=== PATIENT | male | born 1980 | race Caucasian/White ===

== ENCOUNTER 2019-06-17 00:23 | Emergency (ER) | payer SELFPAY ==
[2019-06-17] VITALS (45 sets, daily range): BP systolic 114–187; BP diastolic 78–134; PULSE 56–105; RESP 11–32; TEMP 37–37.4; O2SAT 89–100; BMI 27.0
--- NOTE | 2019-06-17 00:52 | XRR_ITS ---
PROCEDURE INFORMATION: Exam: XR Right Humerus Exam date and time: 06/17/2019 1:10 AM Age: 39 years old Clinical indication: Injury or trauma; Fall; Initial encounter; Dislocation; Severity not specified; Elbow; Right TECHNIQUE: Imaging protocol: XR Right humerus Views: 2 or more views. COMPARISON: No relevant prior studies available. FINDINGS: Bones/joints: Elbow findings detailed in a separate report. No humeral fracture or shoulder dislocation. Soft tissues: Unremarkable. XR/[place] [id number] IMPRESSION: No humeral fracture.
--- NOTE | 2019-06-17 00:52 | XRR_ITS ---
PROCEDURE INFORMATION: Exam: XR Right Elbow Exam date and time: 06/17/2019 1:10 AM Age: 39 years old Clinical indication: Injury or trauma; Fall; Initial encounter; Dislocation; Severity not specified; Elbow; Right TECHNIQUE: Imaging protocol: XR Right elbow. Views: 3 or more views. COMPARISON: No relevant prior studies available. FINDINGS: Bones/joints: Posterior and medial dislocation of the radius and ulna in relationship to the distal humerus. Approximately 1 cm long narrow focus of bone in the olecranon notch. Soft tissues: No large soft tissue hematoma. XR/XR elbow RT min 3V* [id number] IMPRESSION: Elbow dislocation. Probable chip fracture fragment in the olecranon notch, origin unclear.
--- NOTE | 2019-06-17 00:53 | ED_ITS ---
Documented by User: ARIN Pires 06/17/19 00:56 HPI - Extremity Problem General: Chief complaint: Extremity Injury, Upper Stated complaint: r arm injury Time Seen by Provider: 06/17/19 00:43 History of Present Illness: HPI Narrative: Patient fell off a porch night after drinking 3 cups of a serums and soda mixed has right elbow humerus pain and deformity. MD Complaint: extremity pain Onset (ago): minute(s) Pain Consistency: constant Location: right, upper extremity and elbow Severity scale (1-10): 8 Radiation: none Relieving factors: immobilization Exacerbating factors: range of motion Associated symptoms: Deny chest pain, fever(s) or rash Review of Systems Narrative: Patient has been using alcohol tonight but does not appear intoxicated presently complains about right elbow arm pain from a fall earlier tonight Const: Denies: fever, chills or body aches Eyes: Denies: change in vision or blurry vision ENMT: Denies: throat pain or nasal congestion Card: Denies: chest pain or shortness of breath on exertion Resp: Denies: shortness of breath, productive cough or non-productive cough GI: Denies: abdominal pain, nausea or vomiting : Denies: difficulty urinating Musc: Reports: extremity pain and limited range of motion Skin/Breast: Denies: rash Neuro: Denies: headache Psych: Denies: anxiety or depression Hi/Lymph: Denies: easy bruising PFSH ED PFSH: Social History Smoking and tobacco status: never smoked Physical Exam Const: COMMON NORMALS: no apparent distress, average body habitus and oriented x3 HENMT: COMMON NORMALS: normocephalic HEAD & SCALP: normal to inspection and normocephalic FACE & SINUS: normal facial exam Eye: COMMON NORMALS: conjunctivae normal GENERAL EYE: normal appearance of both eyes CONJUNCTIVA: Yes conjunctivae normal Neck/C-Spine: COMMON NORMALS: no JVD Chest: COMMONS NORMALS: inspection of chest normal Resp: COMMON NORMALS: normal respiratory effort and clear to auscultation bilaterally AUSCULTATION: clear to auscultation bilaterally Cardio: COMMON NORMALS: no JVD, regular rate and regular rhythm RATE: regular rate RHYTHM: regular rhythm GI: COMMON NORMALS: normal to inspection, nondistended, normoactive bowel sounds Extremity: COMMON NORMALS: normal to inspection and full ROM RIGHT UPPER EXTREMITY: Yes upper arm (Deformed at the distal humerus) and Yes elbow joint (Deformity) Right elbow: Yes neurovascular exam Neuro: COMMON NORMALS: oriented x3 Course Vital Signs: Vital signs: Vital Signs Temperature 99.3 F 06/17/19 03:40 Pulse Rate 64 06/17/19 04:45 Respiratory Rate 16 06/17/19 04:45 Blood Pressure 115/78 06/17/19 04:45 Pulse Oximetry 97 06/17/19 04:45 Discharge Plan Discharge Patient Disposition: Home, Self-Care Clinical Impression: Dislocation, elbow, posterior Qualifiers: Encounter type: initial encounter Laterality: right Qualified Code(s): S53.124A - Posterior dislocation of right ulnohumeral joint, initial encounter Condition: Stable Prescriptions: New Percocet 7.5-325 mg tablet 1 tab PO Q6H PRN (Reason: pain) Qty: 14 RF: 0 No Action No Known Home Medications RF: 0 Discharge Orders: Discharge Order (Routine); Ordered 06/17/19 Ordered By: Marshall Call Referrals: Tri Howard MD [Physician] - 4-7 days Discharge Diet: Usual diet Discharge Activity: Limit activity as instructed Patient Instructions: Elbow Dislocation (ED) Activity Restrictions/Additional Instructions: Stay in splint until seen by orthopedics. Give them a call Tuesday morning for an appointment this coming week. Return for loss of sensation to your fingers, worsening pain, other concerning symptoms. Discharge Date/Time: 06/17/19 04:55 Coding Level of Care Code ED Inorganic Chemistry Professor for Chg Fwd Exam Comprehensive Documented by User: Marshall Call DO 06/17/19 05:27 HPI - Extremity Problem General: Chief complaint: Extremity Injury, Upper Stated complaint: r arm injury Time Seen by Provider: 06/17/19 00:43 PFSH ED PFSH: Social History Smoking and tobacco status: never smoked Course ED course: 39-year-old male who fell, dislocating his elbow. He was originally seen by ARIN Wilson. I agree with his history, exam, and treatment it essentially took 3 attempts to get his elbow reduced. After the second attempt, he seemed reduced in the coronal plane, but not in the sagittal. On the third attempt, he freely reduced to anatomical. He is placed in a long-arm splint and a sling and asked to follow-up with orthopedics. Vital Signs: Vital signs: Vital Signs Temperature 99.3 F 06/17/19 03:40 Pulse Rate 64 06/17/19 04:45 Respiratory Rate 16 06/17/19 04:45 Blood Pressure 115/78 06/17/19 04:45 Pulse Oximetry 97 06/17/19 04:45 Discharge Plan Discharge Patient Disposition: Home, Self-Care Clinical Impression: Dislocation, elbow, posterior Qualifiers: Encounter type: initial encounter Laterality: right Qualified Code(s): S53.124A - Posterior dislocation of right ulnohumeral joint, initial encounter Condition: Stable Prescriptions: New Percocet 7.5-325 mg tablet 1 tab PO Q6H PRN (Reason: pain) Qty: 14 RF: 0 No Action No Known Home Medications RF: 0 Discharge Orders: Discharge Order (Routine); Ordered 06/17/19 Ordered By: Marshall Call Referrals: Tri Howard MD [Physician] - 4-7 days Discharge Diet: Usual diet Discharge Activity: Limit activity as instructed Patient Instructions: Elbow Dislocation (ED) Activity Restrictions/Additional Instructions: Stay in splint until seen by orthopedics. Give them a call Tuesday for an appointment this coming week. Return for loss of sensation to your fingers, worsening pain, other concerning symptoms. Discharge Date/Time: 06/17/19 04:55 Coding Level of Care Code ED Inorganic Chemistry Professor for Katty Tillman Exam Comprehensive
[2019-06-17] MEDS: morphine 4 mg/mL SDV 1 mL IVP (00:59)
[2019-06-17] MEDS: ondansetron 2 mg/ML SDV 2 mL 4 MG IVP ×2 (00:59→01:41)
--- NOTE | 2019-06-17 01:08 | PC.NURSE ---
Introduced self to patient and initiated vital signs. Patient presents A&O x 4. NAD, ABCs intact and agreeable to treatment. Respirations are even and unlabored. Pt states medications taken before coming to ER are n/a. Pt states that the chief complaint for the ER visit today is due to right elbow / arm pain from falling off of front porch. Pt denies any vision disturbances or lightheadedness. Bed left in lowest position in semi-fowlers with side rails up. Reassured patient of needs and will continue to monitor.
--- NOTE | 2019-06-17 01:14 | XRR_ITS ---
PROCEDURE INFORMATION: Exam: XR Right Elbow Exam date and time: 06/17/2019 3:47 AM Age: 39 years old Clinical indication: Injury or trauma; Fall; Initial encounter; Dislocation; Severity not specified; Elbow; Right; Additional info: Post reduc TECHNIQUE: Imaging protocol: XR Right elbow. Views: 1 or 2 views. COMPARISON: CR XR elbow RT min 3V* [id number] 06/17/2019 12:52 AM FINDINGS: Bones/joints: Interval reduction of the elbow dislocation. Widening of the radiohumeral joint. Small bony density still evident in the area of the olecranon notch suggesting a chip fracture fragment. Soft tissues: No large hematoma. XR/XR elbow RT 2V [id number] IMPRESSION: Reduction of the elbow dislocation. Small chip fracture fragment in the area of the olecranon notch still likely.
[2019-06-17] MEDS: midazolam 1 mg/mL INJ 2 mL 2 MG IV (01:38)
--- NOTE | 2019-06-17 02:49 | PC.NURSE ---
Conscious Sedation medications: Zofran 4mg - 0200 Versed 2mg - 0202 Etomidate 20mg - 0205 (over 30 seconds) Etomidate 10mg - 0215
[2019-06-17] MEDS: propofol 10 mg/mL SDV 20 mL IVP (03:31)
--- NOTE | 2019-06-17 04:12 | PC.NURSE ---
Conscious Sedation - 2 Propofol - 0340 - 40ml 0343 - 40ml 0346 - 20ml 0350 - 20ml 0352 - 10ml
--- NOTE | 2019-06-18 14:10 | DCPLANNER ---
manager supply had message to schedule a follow up appointment for patient with ortho. manager supply called the ortho clinic, spoke with Jada, gave clinic patients information. manager supply was told that patients information would be printed and reviewed. Clinic will call child support case officer with appointment information.
--- NOTE | 2019-06-19 12:39 | DCPLANNER ---
Patient has a follow up appointment scheduled for Wednesday, June 19, 2019 at 2:00 with James. Clinic will call patient with appointment information.
--- NOTE | 2019-06-28 09:52 | DCPLANNER ---
Patient attended appointment scheduled for 06.19.19 with ortho.
== END 2019-06-17 04:55 | disposition home or self-care (01) ==
PROVIDERS: Emergency Provider Emergency Medicine
DX: S53.124A Posterior dislocation of right ulnohumeral joint, initial encounter (principal); W17.89XA Other fall from one level to another, initial encounter; Y92.89 Other specified places as the place of occurrence of the external cause
CPT/HCPCS: 24600; 73060; 73070; 73080; 96361; 96374; 96375; 99284; J2250; J2270; J2405; J2704; J3490

== ENCOUNTER → 2019-06-19 14:30 | Outpatient (BNVA) | payer SELFPAY | PROVIDERS: Referring Provider Emergency Medicine; Visit Provider Orthopaedic Surgery | DX: S53.124A Posterior dislocation of right ulnohumeral joint, initial encounter (principal); X58.XXXA Exposure to other specified factors, initial encounter | CPT/HCPCS: 73080 ==

== ENCOUNTER 2019-07-03 09:27 | Outpatient (CLI) | payer SELFPAY ==
--- NOTE | 2019-07-03 09:41 | XR_ITS ---
WS: [id number] XR elbow RT 2V [id number] REASON FOR EXAM: dislocation elbow FINDINGS: Normal anatomical positioning of the right elbow is noted. No abnormal fat pad changes. There is no fractures seen in the elbow. XR/XR elbow RT 2V [id number] IMPRESSION: Negative right elbow.
== END 2019-07-03 09:28 | disposition home or self-care (01) ==
LOC: RAD 09:29
PROVIDERS: Visit Provider Orthopaedic Surgery
DX: S53.12 Posterior subluxation and dislocation of ulnohumeral joint (principal); X58.XXXA Exposure to other specified factors, initial encounter
CPT/HCPCS: 73070